=== PATIENT | female | born 1975 | race Caucasian/White ===

== ENCOUNTER 2020-08-27 03:29 | Emergency (ER) | payer BC, OTHER ==
--- OUTSIDE RECORDS SUMMARY | 2020-08-27 03:32 | XMS REPORT | Continuity of Care Document ---
:1975 Author Organization [facility] t Address [address] [place] [address] Care Team Providers Name Role Phone Karla Varma DO Ebonie Primary Care Physician Payers Payer Name Policy Type Policy Number Effective Date Expiration Date S ource Problems Condition Condition Condition Status Onset Resolution Last Treating Co mments Source Name Details Category Date Date Treatment Clinician Date Depression Depression Diagnosis [facility] Pacemaker Pacemaker Problem [facility] Anxiety Anxiety Problem [facility] Depression Depression Problem Active [facility] Allergic Allergic Diagnosis Active [facility] rhinitis, rhinitis, Luke s - unspecifie unspecifie Me moria d d l seasonalit seasonalit Ou tpati y, y, ent unspecifie unspecifie Cl inics d trigger d trigger Intractabl Intractabl Problem Active [facility] e migraine e migraine Celine kes - without without Memoria aura and aura and l with with Outpati status status ent migrainosu migrainosu Cl inics s s SVT SVT Diagnosis Active [facility] (supravent (supravent Celine kes - ricular ricular Memoria tachycardi tachycardi l a) a) [facility] Migraine, Migraine, Problem Active [facility] unspecifie unspecifie Celine kes - d, d, Memoria intractabl intractabl l e, with e, with Outpati status status ent migrainosu migrainosu Cl inics s s Mild Mild Problem Active [facility] memory memory [facility] - disturbanc disturbanc Me moria e e l [facility] Dysuria Dysuria Problem Active [facility] Hypertrigl Hypertrigl Diagnosis Active [facility] yceridemia yceridemia Celine kes - [facility] Vaginal Vaginal Diagnosis Active [facility] yeast yeast [facility] - infection infection Nate micaela l [facility] Gastroesop Gastroesop Diagnosis Active [facility] hageal hageal [facility] - reflux reflux Memoria disease, disease, l esophagiti esophagiti Ou tpati s presence s presence en t not not Clinics specified specified Allergies, Adverse Reactions, Alerts Allergy Allergy Status Severity Reaction(s) Onset Inactive Treating Comm ents Source Name Type Date Date Clinician Penicill DA Active [facility] 01-20 00:00: [address] hydrocod DA Active [facility] one 01-20 00:00: [address] Hydrocod Propensi Active [place] one ty to 09 [facility] adverse 00:00: st reaction 00 s to drug Penicill Propensi Active [place] ins ty to 409 Methodi adverse 00:00: st reaction 00 s to drug penicill Adverse Active Info Not [facility] in Reaction Available [facility] codeine Adverse Active Info Not [facility] Reaction Available [facility] Social History Social Habit Start Date Stop Date Quantity Comments Source Sex Assigned At [birth year] [facility] ethodist 00:00:00 00:00:00 Medications Ordered Filled Start Stop Current Ordering Indication Dosage Frequency Signature Comments Components Source Medication Medication Date Date Medication? Clinician (SIG) Name Name Omeprazole Omeprazole Yes Na Varma [address] [facility] 7-16 [facility] - 00:00: [facility] 00 [facility] Propafenone Propafenone Yes Na Varma [address] [facility] HCl HCl 7-16 [facility] - 00:00: [facility] ent [facility] Fluconazole Fluconazole 2018-0 2018- No Na Varma [address] [facility] 12-29 today and [facility] - 00:00: 00:00 may repeat Memori a 00 :00 one tab in l 1 week if Outpati no ent improvemen Clinics t Fetzima Fetzima Yes Na Varma TAKE [address] [facility] [address] CAPSULE BY [facility] - MOUTH ONCE Memoria DAILY l Outpat[facility] ent Clinics Xanax Xanax Yes Na Varma [address] [facility] Imitrex Imitrex Yes Na Varma [address] [facility] Procedures This patient has no known procedures. Plan of Care Planned Activity Planned Date Details Comments Source Future Scheduled 2020-01-15 INFLUENZA VACCINE [place] [facility] 00:00:00 [code = INFLUENZA VACCINE] Future Scheduled 1997 Screening for [facility]odist Test 00:00:00 malignant neoplasm of cervix (procedure) [code = 893351266] Future Scheduled 1994 Hepatitis C [place] [facility] Test 00:00:00 screening (procedure) [code = 914156227] Future Scheduled 1992 COVID-19 VACCINE (1 [place] [facility] 00:00:00 of 2) [code = COVID-19 VACCINE (1 of 2)] Encounters Start End Encounter Admission Attending Care Care Encounter Source Date/Time Date/Time Type Type Clinicians Facility Department ID 2017-12-31 2017-12-31 Outpatient Tawnya Bowlingt [id number] 15:53:00 15:53:00 t [employer] [facility] Medicine Outpati ent Clinics 2017-12-29 2017-12-29 [place]patient [place] [id number] 13:45:00 13:45:00 t [employer] [facility] Medicine l Medicine Outpati ent Clinics 2017-09-18 2017-09-18 Outpatient [place] [id number] 14:30:00 14:30:00 t [employer] [facility] Medicine Out[facility] Clinics Results This patient has no known results.
[2020-08-27 04:31] LABS: Absolute Lymphocytes (CBC) 2.4 K/uL (0.7-4.9); Basophils % 0.6 % (0-1.3); Hematocrit 39.8 % (36.0-45.0); Lymphocytes % 36.6 % (15.3-44.8); MPV 7.5 fL (7.6-11.3); RBC Red Blood Cell Count 4.31 M/uL (3.86-4.86)
[2020-08-27 04:46] LABS: BUN Blood Urea Nitrogen 14 mg/dL (7-18); Bicarbonate 25 mmol/L (21-32); Glucose Level 90 mg/dL (74-106); Magnesium 2.1 mg/dL (1.8-2.4); Potassium 3.7 mmol/L (3.5-5.1); Sodium Level 141 mmol/L (136-145); Troponin (Emerg Dept Use Only) < 0.02 ng/mL (0.0-0.045)
--- NOTE | 2020-08-27 10:06 | EDPHYS ---
Physician Documentation [facility] Name: Stephanie Mora Age: 44 yrs Sex: Female : 1975 Arrival Date: 08/27/2020 Time: 03:29 Bed 20 Private MD: Deepak Guerrier HPI: 08/27 04:28 This 44 yrs old Female presents to ER via Ambulatory with complaints of Heart rn Racing. 04:28 The patient presents with a history of irregular heart beat, heart racing. Context: The rn symptoms occur at rest. Onset: The symptoms/episode began/occurred yesterday. Duration: The patient or guardian reports multiple episodes, that are intermittent. Modifying factors: The symptoms are aggravated by nothing. The symptoms are alleviated by nothing. Associated signs and symptoms: Pertinent positives: lightheadedness, SOB, Pertinent negatives: chest pain, fever, syncope. Severity of symptoms: At their worst the symptoms were moderate in the emergency department the symptoms have improved. The patient has experienced similar episodes in the past. The patient has not recently seen a physician. Reports last time her pacemaker changed was 2 months ago, no change in medication, still taking verapamil, no syncope, reports intermittent lightheaded and palpitations. No fever or chest pain. . 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 - Social history:: Smoking status: Patient denies any tobacco usage or history of. Patient uses alcohol, occasionally. Patient/guardian denies using street drugs. - Family history:: not pertinent. - Hospitalizations: : No recent hospitalization is reported. ROS: 04:28 Constitutional: Negative for fever, chills, and weight loss, Eyes: Negative for injury, rn pain, redness, and discharge, Neck: Negative for injury, pain, and swelling, Cardiovascular: Negative for chest pain Respiratory: + sob, neg for cough Abdomen/GI: Negative for abdominal pain, nausea, vomiting, diarrhea, and constipation, Back: Negative for injury and pain, MS/Extremity: Negative for injury and deformity, Skin: Negative for injury, rash, and discoloration, Neuro: Negative for headache, weakness, numbness, tingling, and seizure. 04:28 All other systems are negative. Exam: 04:28 Constitutional: This is a well developed, well nourished patient who is awake, alert, rn and in no acute distress. Ambulatory to room without distress Head/Face: Normocephalic, atraumatic. Eyes: Periorbital areas with no swelling, redness, or edema. Cardiovascular: Regular rate and rhythm. No pulse deficits. Respiratory: No increased work of breathing, no retractions or nasal flaring. Skin: Warm, dry MS/ Extremity: Pulses equal, no cyanosis. Neurovascular intact. Full, normal range of motion. Equal circumference. Neuro: Awake and alert, GCS 15, oriented to person, place, time, and situation. Cerebellar exam normal. Normal gait. Vital Signs: 03:55 BP 129 / 104; Pulse 98; Resp 16 S; Temp 98.1(O); Pulse Ox 100% on R/A; Weight 97.07 kg bb (R); Height 5 ft. 3 in. (160.02 cm) (R); Pain 0/10; 05:15 BP 105 / 62; Pulse 71; Resp 18; Pulse Ox 95% on R/A; jb4 06:00 BP 122 / 88; Pulse 62; Resp 16; Pulse Ox 98% on R/A; jb4 06:55 BP 118 / 72; Pulse 64; Resp 14; Pulse Ox 95% on R/A; jb4 07:32 BP 115 / 72; Pulse 68; Resp 14; Pulse Ox 94% on R/A; hb 08:30 BP 123 / 77; Pulse 65; Resp 15; Pulse Ox 94% on R/A; hb 09:15 BP 110 / 71; Pulse 64; Resp 14; Pulse Ox 96% on R/A; hb 03:55 Body Mass Index 37.91 (97.07 kg, 160.02 cm) bb MDM: 03:40 Patient medically screened. rn 06:31 ED course: Attempted multiple time to transmit pacemaker information for interrogation, rn unable to transmit, contacted [employer] packaging sales representative, is going to send someone out this morning for eval, otherwise no acute findings on monitor/ecg/blood/cxr. . 08/27 03:48 Order name: CBC with Diff; Complete Time: 04:59 rn 08/27 03:48 Order name: Basic Metabolic Panel; Complete Time: 04:59 rn 08/27 03:48 Order name: Troponin (emerg Dept Use Only); Complete Time: 04:59 rn 08/27 03:48 Order name: Magnesium; Complete Time: 04:59 rn 08/27 03:48 Order name: EKG; Complete Time: 03:48 rn 08/27 03:48 Order name: XRAY Chest (1 view) rn 08/27 03:48 Order name: IV Start; Complete Time: 04:18 rn 08/27 03:48 Order name: EKG - Nurse/Tech; Complete Time: 03:55 rn Administered Medications: No medications were administered Disposition: 08/27/20 10:06 Discharged to Home. Impression: Palpitations, Supraventricular tachycardia. - Condition is Fair. - Discharge Instructions: Holter Monitoring, Palpitations, Paroxysmal Supraventricular Tachycardia, Paroxysmal Supraventricular Tachycardia, Kzyz-ej-Fviy, Aspirin and Your Heart, Palpitations, Acoi-hk-Xfmv. - Prescriptions for Verapamil 120 mg Oral Tablet - take 1 tablet by ORAL route every 12 hours; 100 tablet. - Medication Reconciliation Form, Thank You Letter, Antibiotic Education, Prescription Opioid Use form. - Follow up: Private Physician; When: 2 - 3 days; Reason: Recheck today's complaints, Continuance of care, Re-evaluation by your physician. Follow up: Ziggy Lopes; When: 2 - 3 days; Reason: Recheck today's complaints, Continuance of care, Re-evaluation by your physician. - Problem is new. - Symptoms have improved. Signatures: Dispatcher [employer] EDDeepak Berrios MD MD cha Ballard, Brenda, RN RN Wally Liu MD MD rn Baxter, Heather, RN RN Corrections: (The following items were deleted from the chart) 10:06 10:06 08/27/2020 10:06 Discharged to Home. Impression: Palpitations. Condition is Fair. nusrat Discharge Instructions: Holter Monitoring, Palpitations, Paroxysmal Supraventricular Tachycardia, Paroxysmal Supraventricular Tachycardia, Tnfc-vl-Uomi, Aspirin and Your Heart, Palpitations, Vedp-be-Nlcd. Prescriptions for Verapamil 120 mg Oral Tablet - take 1 tablet by ORAL route every 12 hours; 100 tablet. and Forms are Medication Reconciliation Form, Thank You Letter, Antibiotic Education, Prescription Opioid Use. Follow up: Private Physician; When: 2 - 3 days; Reason: Recheck today's complaints, Continuance of care, Re-evaluation by your physician. Follow up: Ziggy Lopes; When: 2 - 3 days; Reason: Recheck today's complaints, Continuance of care, Re-evaluation by your physician. Problem is new. Symptoms have improved. nusrat 10:46 10:06 08/27/2020 10:06 Discharged to Home. Impression: Palpitations; Supraventricular hb tachycardia. Condition is Fair. Discharge Instructions: Holter Monitoring, Palpitations, Paroxysmal Supraventricular Tachycardia, Paroxysmal Supraventricular Tachycardia, Lhya-ty-Oask, Aspirin and Your Heart, Palpitations, Dxwg-eb-Vcet. Prescriptions for Verapamil 120 mg Oral Tablet - take 1 tablet by ORAL route every 12 hours; 100 tablet. and Forms are Medication Reconciliation Form, Thank You Letter, Antibiotic Education, Prescription Opioid Use. Follow up: Private Physician; When: 2 - 3 days; Reason: Recheck today's complaints, Continuance of care, Re-evaluation by your physician. Follow up: Ziggy Lopes; When: 2 - 3 days; Reason: Recheck today's complaints, Continuance of care, Re-evaluation by your physician. Problem is new. Symptoms have improved. nusrat
--- NOTE | 2020-08-27 10:06 | ER ---
Nurse's Notes [facility] Name: Stephanie Mora Age: 44 yrs Sex: Female : 1975 Arrival Date: 08/27/2020 Time: 03:29 Bed 20 Private MD: Diagnosis: Palpitations;Supraventricular tachycardia Presentation: 08/27 03:55 Chief complaint: Patient states: she feels like her heart has been racing all day and bb she feels short of breath symptoms are getting worse. Coronavirus screen: At this time, the client does not indicate any symptoms associated with coronavirus-19. Ebola Screen: No symptoms or risks identified at this time. Initial Sepsis Screen: Does the patient meet any 2 criteria? No. Patient's initial sepsis screen is negative. Does the patient have a suspected source of infection? No. Patient's initial sepsis screen is negative. Risk Assessment: Do you want to hurt yourself or someone else? Patient reports no desire to harm self or others. Onset of symptoms was August 26, 2020. 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 - Social history:: Smoking status: Patient denies any tobacco usage or history of. Patient uses alcohol, occasionally. Patient/guardian denies using street drugs. - Family history:: not pertinent. - Hospitalizations: : No recent hospitalization is reported. Screenin:23 Abuse screen: Denies threats or abuse. Denies injuries from another. Nutritional hb screening: No deficits noted. Tuberculosis screening: No symptoms or risk factors identified. Fall Risk None identified. Assessment: 03:45 General: Appears in no apparent distress. uncomfortable, Behavior is calm, cooperative, jb4 appropriate for age. Pain: Denies pain. Neuro: Level of Consciousness is awake, alert, obeys commands, Oriented to person, place, time, situation. Cardiovascular: Patient's skin is warm and dry. Respiratory: Airway is patent Respiratory effort is even, unlabored, Respiratory pattern is regular, symmetrical. GI: No signs and/or symptoms were reported involving the gastrointestinal system. : No signs and/or symptoms were reported regarding the genitourinary system. EENT: No signs and/or symptoms were reported regarding the EENT system. Derm: Skin is intact, Skin is pink, warm \T\ dry. Musculoskeletal: Circulation, motion, and sensation intact. Range of motion: intact in all extremities. 05:00 Reassessment: Patient appears in no apparent distress at this time. Patient and/or jb4 family updated on plan of care and expected duration. Pain level reassessed. Patient is alert, oriented x 3, equal unlabored respirations, skin warm/dry/pink. 06:00 Reassessment: Patient appears in no apparent distress at this time. Patient and/or jb4 family updated on plan of care and expected duration. Pain level reassessed. Patient is alert, oriented x 3, equal unlabored respirations, skin warm/dry/pink. 06:02 Reassessment: long conversation with [employer] about interrogator which is not bb transmitting they will send a rep to interrogate the pt here. 06:25 Reassessment: spoke to [employer] rep who states he will be here later this morning. bb 06:34 Reassessment: pt notified of wait time for [employer] rep she agrees to plan of care. bb Additional blankets and a pillow supplied for comfort. 07:32 Reassessment: Patient appears in no apparent distress at this time. No changes from hb previously documented assessment. Patient and/or family updated on plan of care and expected duration. Pain level reassessed. 08:30 Reassessment: Patient appears in no apparent distress at this time. No changes from hb previously documented assessment. Patient and/or family updated on plan of care and expected duration. Pain level reassessed. Patient is alert, oriented x 3, equal unlabored respirations, skin warm/dry/pink. 09:22 Reassessment: Patient appears in no apparent distress at this time. No changes from hb previously documented assessment. Patient and/or family updated on plan of care and expected duration. Pain level reassessed. Patient is alert, oriented x 3, equal unlabored respirations, skin warm/dry/pink. Vital Signs: 03:55 BP 129 / 104; Pulse 98; Resp 16 S; Temp 98.1(O); Pulse Ox 100% on R/A; Weight 97.07 kg bb (R); Height 5 ft. 3 in. (160.02 cm) (R); Pain 0/10; 05:15 BP 105 / 62; Pulse 71; Resp 18; Pulse Ox 95% on R/A; jb4 06:00 BP 122 / 88; Pulse 62; Resp 16; Pulse Ox 98% on R/A; jb4 06:55 BP 118 / 72; Pulse 64; Resp 14; Pulse Ox 95% on R/A; jb4 07:32 BP 115 / 72; Pulse 68; Resp 14; Pulse Ox 94% on R/A; hb 08:30 BP 123 / 77; Pulse 65; Resp 15; Pulse Ox 94% on R/A; hb 09:15 BP 110 / 71; Pulse 64; Resp 14; Pulse Ox 96% on R/A; hb 03:55 Body Mass Index 37.91 (97.07 kg, 160.02 cm) bb ED Course: 03:29 Patient arrived in ED. cl3 03:40 Wally Albright MD is Attending Physician. rn 03:50 Juancarlos Sykes, RN is Primary Nurse. jb4 03:57 Triage completed. bb 04:00 Arm band placed on Patient placed in an exam room, on a stretcher, on nurse monitoring, bb on pulse oximetry. EKG completed in triage. Results shown to MD. 04:17 Initial lab(s) drawn, by ri, sent to lab. Inserted saline lock: 20 gauge in right rv antecubital area, using aseptic technique. Blood collected. 04:37 XRAY Chest (1 view) In Process Unspecified. EDMS 07:15 Patient has correct armband on for positive identification. Bed in low position. Call hb light in reach. 07:24 Attending Physician role handed off by Wally Albright MD nusrat 07:24 Deepak Norman MD is Attending Physician. nusrat 07:32 Primary Nurse role handed off by Juancarlos Sykes RN 09:22 Candice Shen, RN is Primary Nurse. hb 10:06 Ziggy Lopes MD is Referral Physician. [facility] 10:45 No provider procedures requiring assistance completed. IV discontinued, intact, hb bleeding controlled, No redness/swelling at site. Administered Medications: No medications were administered Outcome: 10:06 Discharge ordered by . nusrat 10:45 Discharged to home ambulatory. hb 10:45 Condition: stable 10:45 Discharge instructions given to patient, Instructed on discharge instructions, follow up and referral plans. medication usage, Demonstrated understanding of instructions, follow-up care, medications, Prescriptions given X 1. 10:46 Patient left the ED. hb Signatures: Dispatcher [employer] EDMS Michelle Moore Deana, RN RN [email or web address] Deepak Norman MD MD cha Ballard, Brenda, RN RN Wally Liu MD MD rn Baxter, Heather, ROBERTA RN Juancarlos Sykes, ROBERTA [email or web address] Phong Padilla RN RN rv Lewis, Charde cl3
--- NOTE | 2020-08-27 10:21 | EKG ---
Test Date: 2020-08-27 Test Time: 03:49:50 Rn Clinical Quality: GENOVEVA MEASUREMENT RESULTS: Intervals: Rate: 84 GA: 186 QRSD: 72 QT: 374 QTc: 441 Lenore: P: 35 GA: 186 QRS: -2 T: 74 INTERPRETIVE STATEMENTS: Atrial-sensed ventricular-paced rhythm Abnormal ECG Compared to ECG 04/17/2014 18:54:54 Sinus rhythm no longer present ST (T wave) deviation no longer present Electronically Signed On 08-27-20 10:21:09 CDT by Ziggy Lopes
[2020-08-28 11:44] VITALS: TEMP 98.1
[2020-08-28 11:51] VITALS: BP 110/71; O2SAT 96
--- NOTE | 2020-08-28 13:37 | RAD REPORT ---
EXAM DESCRIPTION: RAD - Chest Single View - 08/27/2020 4:37 am CLINICAL HISTORY: The patient is 44 years old and is Female; PALPS TECHNIQUE: Frontal view of the chest. COMPARISON: No relevant prior studies available. FINDINGS: Lungs: Unremarkable. No consolidation. Pleural space: Unremarkable. No pneumothorax. Heart: Unremarkable. Mediastinum: Unremarkable. Bones/joints: Unremarkable. Tubes, lines and devices: Left-sided pacemaker. IMPRESSION: No acute findings in the chest. Electronically signed by: Sam Garcia MD 08/27/2020 6:15 AM CDT Due to temporary technical issues with the PACS/Fluency reporting system, reports are being signed by the in house radiologists without review as a courtesy to insure prompt reporting. The interpreting radiologist is fully responsible for the content of the report.
== END 2020-08-27 10:46 | disposition home or self-care (01) ==
LOC: ER 03:29
DX: I47.1 Supraventricular tachycardia (principal); I10 Essential (primary) hypertension; F41.9 Anxiety disorder, unspecified; Z95.0 Presence of cardiac pacemaker; Z88.0 Allergy status to penicillin; Z88.5 Allergy status to narcotic agent
CPT/HCPCS: 36415; 71045; 80048; 83735; 84484; 85025; 93005; 99284